=== PATIENT | male | born 1955 ===

== ENCOUNTER 2021-11-12 06:16 | Day surgery (SDC) | payer OTHER ==
[~2021-11-12 06:16] MED LIST: COZAAR100 MG PO; ELIQUIS5 MG PO; GLUMETZA1000 MG PO; HORIZANT300 MG PO; HYDROCHLOROTHIA25 MG PO; LANTUS; SERTRALINE HCL25 MG PO; TOPROL XL100 M1 PO
== END 2021-11-13 08:55 | disposition home or self-care (01) ==
LOC: CIR.AMB 06:16
PROVIDERS: ATTEND Colon & Rectal Surgery
DX: D12.9 Benign neoplasm of anus and anal canal (principal); K64.2 Third degree hemorrhoids; Z20.822 Contact with and (suspected) exposure to COVID-19; Z88.6 Allergy status to analgesic agent; I48.91 Unspecified atrial fibrillation; I10 Essential (primary) hypertension; Z87.891 Personal history of nicotine dependence; E11.9 Type 2 diabetes mellitus without complications; Z79.84 Long term (current) use of oral hypoglycemic drugs; Z86.010 Personal history of colon polyps